=== PATIENT | male | born 1965 | race Two or more races ===

== ENCOUNTER 2024-11-15 17:39 | Emergency (ER) | payer OTHER ==
[~2024-11-15] VITALS: Ht 177.8 cm; Wt 72.8 kg
--- NOTE | 2024-11-15 18:47 | ED.PDOC ---
GI ASSESSMENT HPI Comments HPI: Poor Historian. 59-year-old male presents to emergency department for evaluation of nausea vomiting diarrhea periumbilical abdominal pain that started two days ago. Patient states the diarrhea was brown in color but has resolved today. Patient states vomiting yesterday nonbilious nonbloody but has resolved today. He still has some nonspecific periumbilical discomfort that is nonradiating and constant. He said onset of symptoms occurred after he ate a burger. He suspects that he typically gets similar symptoms after he eats greasy food. Patient uses marijuana. When asked, patient has said that he is unable to give us a stool sample. Patient states he feels dehydrated and a little bit short of breath. He said when he had these GI symptoms before it is usually associated with mild shortness of breath. Past Medcial History: Denies any Past Surgical History: Denies any Allergies to Motrin REVIEW OF SYSTEMS: CONSTITUTIONAL: Denies acute: fever, diaphoresis, chills, HEAD: Denies acute: headache, photophobia Eyes: Denies acute: Double vision, vision loss, eye pain, eye discharge. EARS: Denies acute: tinnitus, hearing loss, ear discharge, ear pain, THROAT: Denies acute: sore throat, swelling, difficulty swallowing , pain with swallowing, change in voice. NECK: Denies acute: neck pain, neck swelling, stiff neck. HEART: Denies acute : chest pain, palpitations, LUNGS: Denies acute: SOB, wheezing, cough, hemoptysis ABDOMEN: Denies acute: melena , hematemesis, hematochezia SKIN: Denies acute: rash, redness, lesions, itchiness. EXTREMITIES: Denies acute: calf pain, numbness, tingling, weakness, denies pain in extremity. Denies acute: Low back pain. Neuro: Denies acute: focal neurological deficit, motor or sensory focal neurological deficit, tremors, seizure like activity, confusion, dizziness, change in mental status, loss of bowel or bladder function, cauda equina like symptoms. : Denies acute: dysuria, hematuria, flank pain, increase in urinary frequency. PSYCH: Denies acute: hallucination, suicidal ideation, homicidal ideation. PHYSICAL EXAM: General: no acute distress, awake and alert. Head: normocephalic, atraumatic. Neck: supple, trachea is midline, no swelling. Throat: Normal phonation. Eyes:, no erythema, no purulent discharge, no proptosis, no icterus. Heart: regular rate, regular rhythm, no significant murmur appreciated. Lungs: no apparent respiratory distress, Able to speak in full sentences. No wheezing, no rhonchi, no crackles. No stridors Clear to auscultation bilaterally. Abdomen: Minimal periumbilical tender to palpation, non distended, soft, no guarding, no rebound, + bowel sounds. Neuro: Awake, Alert, oriented to name, self, situation, follows commands GCS=15. Speech is normal. Skin: no petechia, no purpura, no cyanosis, non-pale, not jaundice. Lower extremities: --no - Pitting edema no deformity, no focal swelling, no calf TTP. Makes eye contact. moves all four extremities. Face: no apparent facial droop. Ambulating in the ED independently. Chief Complaint: Nausea/Vomiting Time Seen by MD: 17:45 Reviewed Notes: Nurses Notes, Allergies Allergies: Coded Allergies: Ibuprofen (Verified Allergy, Unknown, 11/15/24) Information Source: Patient Mode of Arrival: Ambulatory X-Ray, Labs, Meds, VS Vital Signs Date Time Temp Pulse Resp B/P (MAP) Pulse Ox O2 Delivery O2 Flow Rate FiO2 11/15/24 22:00 191/108 11/15/24 21:53 77 18 191/108 (135) 98 11/15/24 20:33 98 17 98 Room Air 11/15/24 20:33 98.2 98 17 150/107 (121) 98 98.2 11/15/24 18:12 97.9 99 18 165/90 (115) 100 Lab Test 11/15/24 21:55 11/15/24 20:27 11/15/24 20:20 11/15/24 19:08 Range/Units Troponin I High Sensitivity 8 9 12 </=54 ng/L Influenza Type A Antigen Positive Negative Influenza Type B Antigen Positive Negative SARS-CoV-2 Antigen (Rapid) Negative NEGATIVE White Blood Count 13.5 H 4.4-10.8 10^3/uL Red Blood Count 5.97 H 4.5-5.90 10^6/uL Hemoglobin 18.5 H 13.5-17.5 g/dL Hematocrit 52.9 41.0-53.0 % Mean Corpuscular Volume 88.6 80.0-100.0 fL Mean Corpuscular Hemoglobin 31.0 28.0-32.0 pg Mean Corpuscular Hemoglobin Concent 34.9 32.0-36.0 g/dL Red Cell Distribution Width 13.0 11.8-14.3 % Platelet Count 282 140-450 10^3/uL Mean Platelet Volume 7.7 6.9-10.8 fL Neutrophils (%) (Auto) 86.4 H 37.0-80.0 % Lymphocytes (%) (Auto) 6.1 L 10.0-50.0 % Monocytes (%) (Auto) 7.3 0.0-12.0 % Eosinophils (%) (Auto) 0.0 0.0-7.0 % Basophils (%) (Auto) 0.2 0.0-2.0 % Neutrophils # (Auto) 11.7 H 1.6-8.6 10 ^3/uL Lymphocytes # (Auto) 0.8 0.4-5.4 10 ^3/uL Monocytes # (Auto) 1.0 0-1.3 10 ^3/uL Eosinophils # (Auto) 0 0-0.8 10 ^3/uL Basophils # (Auto) 0 0-0.2 10 ^3/uL Nucleated Red Blood Cells 0.2 % Sodium Level 135 L 136-145 mmol/L Potassium Level 3.4 L 3.5-5.1 mmol/L Chloride Level 104 98-107 mmol/L Carbon Dioxide Level 22 20-31 mmol/L Anion Gap 9 5-15 Blood Urea Nitrogen 13 9-23 mg/dL Creatinine 0.86 0.700-1.30 mg/dL Glomerular Filtration Rate Calc 100 >90 mL/min BUN/Creatinine Ratio 15.1 10.0-20.0 Serum Glucose 124 H 74-106 mg/dL Lactic Acid Level 1.1 0.4-2.0 mmol/L Calcium Level 10.1 8.7-10.4 mg/dL Magnesium Level 2.2 1.6-2.6 mg/dL Total Bilirubin 0.7 0.2-1.0 mg/dL Aspartate Amino Transferase (AST) 15 13-40 U/L Alanine Aminotransferase (ALT) 17 7-40 U/L Alkaline Phosphatase 83 46-116 U/L B-Type Natriuretic Peptide 18.56 0-100 pg/mL Total Protein 7.6 5.7-8.2 g/dL Albumin 5.1 H 3.2-4.8 g/dL Lipase 55 H 12-53 U/L Test 11/15/24 18:09 Range/Units Urine Color Yellow Yellow Urine Clarity Clear Clear Urine pH 6.0 5.0-9.0 Urine Specific Section 1.037 H 1.001-1.035 Urine Protein 1+ H Negative Urine Ketones 2+ H Negative Urine Blood 2+ H Negative /uL Urine Nitrite Negative Negative Urine Bilirubin Negative Negative Urine Urobilinogen Normal Negative mg/dL Urine Leukocyte Esterase Negative Negative /uL Urine RBC 3 0 - 3 /hpf Urine WBC 1 0 - 3 /hpf Urine Squamous Epithelial Cells None seen <5 /hpf Urine Bacteria Few H None Seen /hpf Urine Mucus Few None Seen Urine Glucose Normal Normal mg/dL Urine Opiates Screen Neg NEGATIVE Urine Fentanyl Screen Neg NEGATIVE Urine Barbiturates Screen Neg NEGATIVE Urine Phencyclidine Screen Neg NEGATIVE Urine Amphetamines Screen Neg NEGATIVE Urine Benzodiazepines Screen Neg NEGATIVE Urine Cocaine Screen Neg NEGATIVE Urine Cannabinoids Screen Pos NEGATIVE Current Medications Medications (Trade) Dose Ordered Sig/Lavinia Route Start Time Stop Time Status Last Admin Sodium Chloride 1,000 ml @ 1,000 mls/hr Q1H ONCE IV 11/15/24 18:45 11/15/24 19:44 DC 11/15/24 20:41 Ondansetron HCl (Zofran) 8 mg ONCE ONCE IV 11/15/24 18:45 11/15/24 18:46 DC 11/15/24 20:51 Nitroglycerin (Ntrostat Sublingual) 0.4 mg ONCE ONCE SL 11/15/24 22:00 11/15/24 22:01 DC 11/15/24 22:00 Metoclopramide HCl (Reglan Injection) 5 mg ONCE ONCE IV 11/15/24 22:00 11/15/24 22:01 DC 11/15/24 22:04 Procedure: CT HEAD WITHOUT CONTRAST Study Date and Requested Time: 11/15/2024 09:18 PM History: dizzy, htn Comparison: None Dose: CTDI: 64.81 mGy DLP: 1276.89 mGycm Technique: Multiplanar images obtained through the brain without intravenous contrast. Findings: Normal brain volume and formation. Mild chronic small vessel ischemic changes. No hemorrhages, masses, mass effect, midline shift, herniation or cytotoxic edema following a large vascular territory. No intra-axial or extra-axial fluid collections. No evidence of hydrocephalus. The basal cisterns are patent. The pituitary gland, sella and parasellar regions are unremarkable. The cer ebellar tonsils are in normal position. The cerebellum is unremarkable. The orbits and globes are unremarkable. Chronic deformity of the right lamina papyracea. Minimal pansinus mucoperiosteal thickening. The mastoids are clear. There are no worrisome calvarial lesions. Impression: No evidence of acute intracranial abnormality. CHEST RADIOGRAPH Indication: n/v/d abd pain, sob Technique: Single frontal view of the chest was obtained Comparison: None FINDINGS: Lines and Tubes: None Lungs: No focal consolidation. Pleura: No effusion. No pneumothorax. Cardiomediastinal contours: Unremarkable Bones: No acute osseous abnormality. IMPRESSION: No acute cardiopulmonary disease. Exam: CT CT AB PEL WO CON-NO ORAL OR IV History: n/v/d abd pain, sob Comparison Study: None available at time of dictation. TECHNIQUE: Multidetector CT of the abdomen and pelvis without contrast. Axial, coronal and sagittal multiplanar reformats were obtained from the axial data set by the technologist. Radiation Dose Information: CT Dose: CTDI volume is 8.14 mGy. Dose-length product is 481.53 mGy*cm FINDINGS: The lung bases are clear. Partially visualized heart is unremarkable. Mild hepatomegaly with no focal lesions. Otherwise, liver, spleen, gallbladder, pancreas and right adrenal gland are unremarkable. 2.9 cm left adrenal nodule measuring up to 6 Hounsfield units. Kidneys, ureters and urinary bladder are unremarkable. Prostate measures 3 x 4.8 by 3.7 cm. Mild gastric wall thickening. Mild wall thickening of proximal small bowel loops. The remainder of the small bowel loops unremarkable. Appendix is unremarkable. Descending colon diverticulosis without diverticulitis. No evidence of intraperitoneal free air or free fluid. No evidence of aortic aneurysm. Mild atherosclerotic calcification of the aorta and bilateral iliacs. No significant lymphadenopathy. Small fat containing umbilical hernia. The soft tissues are unremarkable. No destructive osseous lesions are noted. IMPRESSION: Mild wall thickening of the stomach and proximal small bowel loops which may be due to inadequate distention /gastroenteritis. Descending colon diverticulosis without diverticulitis. Mild hepatomegaly with no focal hepatic lesions. 2.9 cm left adrenal nodule which may represent an adenoma. Patient Education/Counseling: Diagnosis, Treatment Family Education/Counseling: No Family Present Comments Patient eloped Departure 1 Departure Time of Disposition: 21:19 Impression: Primary Impression: Influenza A Additional Impressions: Influenza B Abdominal pain Nausea vomiting and diarrhea Disposition: 07 LEFT AWOL/ELOPED Condition: Guarded e-Prescriptions Oseltamivir Phosphate (Tamiflu) 75 Mg Cap 1 CAP PO BID for 5 Days, #10 CAP Prov: AUBREY LANDRUM DO 11/16/24 Discharged With: Self I personally scribed for AUBREY LANDRUM DO ([email or web address]) on 11/16/24 at 01:02. Electronically submitted by Wilbur Quinteros ([email or web address]). AUBREY LANDRUM DO Nov 15, 2024 18:47
--- NOTE | 2024-11-15 19:06 | DVH ---
CHEST RADIOGRAPH Indication: n/v/d abd pain, sob Technique: Single frontal view of the chest was obtained Comparison: None FINDINGS: Lines and Tubes: None Lungs: No focal consolidation. Pleura: No effusion. No pneumothorax. Cardiomediastinal contours: Unremarkable Bones: No acute osseous abnormality. IMPRESSION: No acute cardiopulmonary disease.
--- NOTE | 2024-11-15 19:18 | DVH ---
Exam: CT CT AB PEL WO CON-NO ORAL OR IV History: n/v/d abd pain, sob Comparison Study: None available at time of dictation. TECHNIQUE: Multidetector CT of the abdomen and pelvis without contrast. Axial, coronal and sagittal m ultiplanar reformats were obtained from the axial data set by the technologist. Radiation Dose Information: CT Dose: CTDI volume is 8.14 mGy. Dose-length product is 481.53 mGy*cm FINDINGS: The lung bases are clear. Partially visualized heart is unremarkable. Mild hepatomegaly with no focal lesions. Otherwise, liver, spleen, gallbladder, pancreas and right ad renal gland are unremarkable. 2.9 cm left adrenal nodule measuring up to 6 Hounsfield units. Kidneys, ureters and urinary bladder are unremarkable. Prostate measures 3 x 4.8 by 3.7 cm. Mild gastric wall thickening. Mild wall thickening of proximal small bowel loops. The remainder of t he small bowel loops unremarkable. Appendix is unremarkable. Descending colon diverticulosis without diverticulitis. No evidence of intraperitoneal free air or free fluid. No evidence of aortic aneurysm. Mild atherosclerotic calcification of the aorta and bilateral iliacs . No significant lymphadenopathy. Small fat containing umbilical hernia. The soft tissues are unremarkable. No destructive osseous lesi ons are noted. IMPRESSION: Mild wall thickening of the stomach and proximal small bowel loops which may be due to inadequate dis tention /gastroenteritis. Descending colon diverticulosis without diverticulitis. Mild hepatomegaly with no focal hepatic lesions. 2.9 cm left adrenal nodule which may represent an adenoma.
[2024-11-15 19:30] LABS: Urine Bacteria FEW /hpf (None Seen); Urine Blood 2+ /uL (Negative); Urine Clarity Clear (Clear); Urine Color Yellow (Yellow); Urine Mucus FEW (None Seen); Urine Protein, UAD 1+ (Negative); Urine Specific Gravity 1.037 (1.001-1.035); Urine Squamous Epithelial Cell None Seen /hpf (<5); Urine Urobilinogen Normal (Negative); Urine WBC 1 /hpf (0 - 3)
[2024-11-15 19:38] LABS: Basophils # (auto) 0 10 ^3/uL (0-0.2); Eosinophils # (auto) 0 10 ^3/uL (0-0.8); Neutrophils # (auto) 11.7 10 ^3/uL (1.6-8.6); Nucleated Red Blood Cells % 0.2 %; White Blood Cell 13.5 10^3/uL (4.4-10.8)
[2024-11-15 19:40] LABS: Basophils % (auto) 0.2 % (0.0-2.0); Hematocrit 52.9 % (41.0-53.0); Hemoglobin 18.5 g/dL (13.5-17.5); Lymphocytes # (auto) 0.8 10 ^3/uL (0.4-5.4); Lymphocytes % (auto) 6.1 % (10.0-50.0); Mean Corpuscular Hgb Conc. 34.9 g/dL (32.0-36.0); Mean Corpuscular Volume 88.6 fL (80.0-100.0); Monocytes % (auto) 7.3 % (0.0-12.0); Neutrophils % (auto) 86.4 % (37.0-80.0); Platelet Count (auto) 282 10^3/uL (140-450); Red Blood Cells 5.97 10^6/uL (4.5-5.90)
[2024-11-15 19:43] LABS: Cannabinoid Screen, Urine Pos (NEGATIVE)
[2024-11-15 19:45] LABS: Amphetamine Screen, Urine Neg (NEGATIVE); Barbiturate Scree,Urine Neg (NEGATIVE); Benzodiazephine Screen, Urine Neg (NEGATIVE); Cocaine Screen, Urine Neg (NEGATIVE); Opiate Scree,Urine Neg (NEGATIVE); Phencyclidine Screen, Urine Neg (NEGATIVE)
[2024-11-15 19:57] LABS: Alanine Aminotransferase 17 U/L (7-40); Alkaline Phosphatase 83 U/L (46-116); Anion Gap 9 (5-15); Aspartate Aminotransferase 15 U/L (13-40); BUN/Creatinine Ratio 15.1 (10.0-20.0); Bilirubin, Total 0.7 mg/dL (0.2-1.0); Blood Urea Nitrogen 13 mg/dL (9-23); Calcium 10.1 mg/dL (8.7-10.4); Carbon Dioxide 22 mmol/L (20-31); Chloride 104 mmol/L (98-107); Magnesium 2.2 mg/dL (1.6-2.6); Total Protein 7.6 g/dL (5.7-8.2)
[2024-11-15 19:58] LABS: Albumin 5.1 g/dL (3.2-4.8); Glucose 124 mg/dL (74-106); Lipase 55 U/L (12-53); Potassium 3.4 mmol/L (3.5-5.1); Sodium 135 mmol/L (136-145)
[2024-11-15 20:33] VITALS: TEMP 98.2
[2024-11-15] MEDS: SODIUM CHLORIDE 0.9% 1,000 ML IV ONE (20:41)
[2024-11-15] MEDS: ONDANSETRON HCL 4 MG/2 ML VIAL IV ONE (20:51)
[2024-11-15 21:14] LABS: COVID19 ANTIGEN SOFIA FIA NEGATIVE (NEGATIVE)
[2024-11-15 21:16] LABS: Rapid Influenza A Positive (Negative); Rapid Influenza B Positive (Negative)
--- NOTE | 2024-11-15 21:39 | DVH ---
Procedure: CT HEAD WITHOUT CONTRAST Study Date and Requested Time: 11/15/2024 09:18 PM History: dizzy, htn Comparison: None Dose: CTDI: 64.81 mGy DLP: 1276.89 mGycm Technique: Multiplanar images obtained through the brain without intravenous contrast. Findings: Normal brain volume and formation. Mild chronic small vessel ischemic changes. No hemorrhages, masses, mass effect, midline shift, herniation or cytotoxic edema following a large v ascular territory. No intra-axial or extra-axial fluid collections. No evidence of hydrocephalus. The basal cisterns are patent. The pituitary gland, sella and parasellar regions are unremarkable. The cerebellar tonsils are in nor mal position. The cerebellum is unremarkable. The orbits and globes are unremarkable. Chronic deformity of the right lamina papyracea. Minimal pans inus mucoperiosteal thickening. The mastoids are clear. There are no worrisome calvarial lesions. Impression: No evidence of acute intracranial abnormality.
[2024-11-15 21:53] VITALS: BP 191/108; PULSE 77; RESP 18; O2SAT 98
[2024-11-15] MEDS: HYDROcodone-ACET 5/325MG TAB PO ONE (22:00)
[2024-11-15] MEDS: NITROGLYCERIN 0.4 MG SL TAB SL ONE (22:00)
[2024-11-15] MEDS: METOCLOPRAMIDE HCL 5MG/ml INJ 2ml VIAL IV ONE (22:04)
[2024-11-16] MEDS ORDERED: OSELTAMIVIR 75 MG CAP PO ONE
[2024-11-16] MEDS ORDERED: OSEL75CA5 PO (01:57)
== END 2024-11-16 00:23 | disposition left against medical advice (07) ==
LOC: ER 17:39
DX: J10.1 Influenza due to other identified influenza virus with other respiratory manifestations (principal); R10.33 Periumbilical pain; R11.2 Nausea with vomiting, unspecified; R19.7 Diarrhea, unspecified; R51.9 Headache, unspecified; R07.89 Other chest pain; Z88.8 Allergy status to other drugs, medicaments and biological substances; Z20.822 Contact with and (suspected) exposure to COVID-19
CPT/HCPCS: 36415; 70450; 71045; 74176; 80053; 80307; 81001; 83605; 83690; 83735; 83880; 84484; 85025; 87426; 87804; 96361; 96374; 96375; 99285; J2405; J2765; J7030